=== PATIENT | male | born 2000 | race African-American/Black ===

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

== ENCOUNTER 2022-03-25 17:44 | Emergency (ER) | payer MEDICAID, OTHER ==
[~2022-03-25] VITALS: Ht 177.8 cm; Wt 68.0 kg
[~2022-03-25 17:44] MED LIST changes: -ALBU6.7H IH; +ALBU6.7H15 IH
[2022-03-25 18:15] VITALS: BP 116/74
== END 2022-03-25 21:43 | disposition home or self-care (01) ==
LOC: ER 18:30
DX: Z00.00 Encounter for general adult medical examination without abnormal findings (principal); J45.909 Unspecified asthma, uncomplicated
CPT/HCPCS: 99281

== ENCOUNTER 2022-12-11 12:33 | Emergency (ER) | payer OTHER ==
[~2022-12-11] VITALS: Ht 177.8 cm; Wt 82.0 kg
[2022-12-11 13:12] VITALS: O2SAT 100
[2022-12-11 14:34] VITALS: BP 135/59; PULSE 104; RESP 16; TEMP 98.9
== END 2022-12-11 14:39 | disposition home or self-care (01) ==
LOC: ER 12:43
DX: J06.9 Acute upper respiratory infection, unspecified (principal); J45.909 Unspecified asthma, uncomplicated
CPT/HCPCS: 71045; 99283

== ENCOUNTER 2023-04-07 16:38 | Emergency (ER) | payer SELFPAY ==
[~2023-04-07] VITALS: Ht 180.3 cm; Wt 82.0 kg
[2023-04-07 17:04] VITALS: O2SAT 97
[2023-04-07] MEDS ORDERED: D-ME473S50 PO (18:25)
[2023-04-07] MEDS ORDERED: ALBU18HF2 IH (18:25)
[2023-04-07 19:18] VITALS: BP 133/79; PULSE 92; RESP 18; TEMP 98
== END 2023-04-07 19:23 | disposition home or self-care (01) ==
LOC: ER 16:38
DX: J06.9 Acute upper respiratory infection, unspecified (principal); J45.909 Unspecified asthma, uncomplicated; Z20.822 Contact with and (suspected) exposure to COVID-19
CPT/HCPCS: 87426; 99283